=== PATIENT | female | born 1990 | race Caucasian/White ===

== ENCOUNTER 2016-03-10 12:27 | Outpatient (CLI) | payer MEDICAID | END 2016-03-10 12:28 | disposition home or self-care (01) | DX: Z34.82 Encounter for supervision of other normal pregnancy, second trimester (principal); Z36 Encounter for antenatal screening of mother ==

== ENCOUNTER 2016-03-17 12:36 | Outpatient (CLI) | payer MEDICAID | END 2016-03-17 12:37 | disposition home or self-care (01) | DX: Z36 Encounter for antenatal screening of mother (principal) ==

== ENCOUNTER 2016-04-15 16:18 | Outpatient (CLI) | payer MEDICAID | END 2016-04-15 16:19 | disposition home or self-care (01) | DX: R82.99 Other abnormal findings in urine (principal) ==

== ENCOUNTER 2016-05-02 11:18 | Outpatient (CLI) | payer MEDICAID | END 2016-05-02 11:19 | disposition home or self-care (01) | DX: Z53.9 Procedure and treatment not carried out, unspecified reason (principal) ==

== ENCOUNTER 2016-05-02 11:44 | Outpatient (CLI) | payer MEDICAID | END 2016-05-02 13:45 | disposition home or self-care (01) | DX: O99.89 Other specified diseases and conditions complicating pregnancy, childbirth and the puerperium (principal); R10.9 Unspecified abdominal pain; M54.9 Dorsalgia, unspecified; Z3A.33 33 weeks gestation of pregnancy ==

== ENCOUNTER 2016-05-28 15:08 | Outpatient (CLI) | payer MEDICAID | END 2016-05-28 15:09 | disposition home or self-care (01) | DX: Z36 Encounter for antenatal screening of mother (principal) ==

== ENCOUNTER 2016-06-25 16:09 | Inpatient (IN) | payer MEDICAID ==
[2016-06-25] MEDS ORDERED: SODIUM CHLORIDE FLUSH 0.9% 10 ML SYRINGE IVP ONE (16:19)
[2016-06-25] MEDS ORDERED: ONDANSETRON 4 MG/2 ML VIAL IVP PRN (18:29)
[2016-06-25] MEDS ORDERED: fentaNYL 100 MCG/2 ML VIAL IVP PRN (18:29)
[2016-06-25] MEDS ORDERED: SODIUM CHLORIDE FLUSH 0.9% 10 ML SYRINGE IVP PRN (18:29)
[2016-06-25] MEDS ORDERED: LACTATED RINGERS 1,000 ML IV SCH (19:00)
[2016-06-25] MEDS ORDERED: DINOPROSTONE 10 MG SUPP VG SCH (19:20)
[2016-06-25] MEDS ORDERED: ZOLPIDEM 5 MG TABLET PO PRN (19:24)
[2016-06-25] MEDS ORDERED: SODIUM CHLORIDE FLUSH 0.9% 10 ML SYRINGE IVP SCH (22:00)
[2016-06-26] MEDS ORDERED: ROPIVACAINE 0.5% PF 20 ML AMPULE EP ONE (04:00)
[2016-06-26] MEDS ORDERED: fentaNYL 100 MCG/2 ML VIAL IVP ONE (04:00)
[2016-06-26] MEDS ORDERED: ePHEDrine 50 MG/ML VIAL IVP ONE (04:00)
[2016-06-26] MEDS ORDERED: fentaNYL 100 MCG/2 ML VIAL ONE (04:21)
[2016-06-26] MEDS ORDERED: fent/BUPIV 2 MCG/0.125% 250 ML EP ONE (04:21)
[2016-06-26] MEDS ORDERED: fent/BUPIV 2 MCG/0.125% 250 ML EP PRN (05:29)
[2016-06-26] MEDS ORDERED: LACTATED RINGERS 500 ML IV ONE ×2 (05:29→11:46)
[2016-06-26] MEDS ORDERED: NALBUPHINE 20 MG/ML AMP IVP PRN (05:29)
[2016-06-26] MEDS ORDERED: ePHEDrine 50 MG/ML AMP IVP PRN (05:29)
[2016-06-26] MEDS ORDERED: diphenhydrAMINE INJ 50 MG/ML VIAL IVP PRN (05:29)
[2016-06-26] MEDS ORDERED: ONDANSETRON 4 MG/2 ML VIAL IVP PRN (05:29)
[2016-06-26] MEDS ORDERED: METOCLOPRAMIDE 10 MG/2 ML VIAL IVP PRN (05:29)
[2016-06-26] MEDS ORDERED: NALOXONE 0.4 MG/ML VIAL IVP PRN (05:29)
[2016-06-26] MEDS ORDERED: SODIUM CHLORIDE FLUSH 0.9% 10 ML SYRINGE IVP PRN (05:45)
[2016-06-26] MEDS ORDERED: SODIUM CHLORIDE FLUSH 0.9% 10 ML SYRINGE IVP SCH (06:00)
[2016-06-26] MEDS: LACTATED RINGERS 1,000 ML IV SCH ×2 (06:05→11:40)
[2016-06-26] MEDS ORDERED: OXYTOCIN/LACTATED RINGERS 250 ML IV ONE ×2 (08:59→09:27)
[2016-06-26] MEDS ORDERED: LIDOCAINE 1% 50 ML MDV ONE (09:00)
[2016-06-26] MEDS ORDERED: RHO(D) IMMUNE GLOBULIN 300 MCG SYRINGE IVP ONE (09:52)
[2016-06-26] MEDS ORDERED: HYDROCORTISONE/PRAMOXINE 10 GM PR PRN (09:52)
[2016-06-26] MEDS ORDERED: WITCH HAZEL/GLYCERIN 1 EACH MED..PAD TOP PRN (09:52)
[2016-06-26] MEDS ORDERED: SIMETHICONE CHEW 80 MG TABLET PO PRN (09:52)
[2016-06-26] MEDS ORDERED: HYDROcod/ACETAM 5/325 MG TABLET PO PRN (09:52)
[2016-06-26] MEDS: ACETAMINOPHEN 325 MG TABLET PO PRN ×2 (10:28→16:18)
[2016-06-26] MEDS ORDERED: CELECOXIB 100 MG CAPSULE PO SCH (21:00)
[2016-06-27] MEDS ORDERED: NICOTINE 14 MG PATCH TOP SCH (09:00)
== END 2016-06-26 18:45 | disposition home or self-care (01) | DRG 774 ==
PROC: 3E0P7GC Introduction of Other Therapeutic Substance into Female Reproductive, Via Natural or Artificial Opening (ICD-10-PCS; 2016-06-25)
PROC: 10E0XZZ Delivery of Products of Conception, External Approach (ICD-10-PCS; principal; 2016-06-26)
PROC: 0KQM0ZZ Repair Perineum Muscle, Open Approach (ICD-10-PCS; 2016-06-26)
DX: O48.0 Post-term pregnancy (principal); O90.89 Other complications of the puerperium, not elsewhere classified; O22.43 Hemorrhoids in pregnancy, third trimester; Z3A.41 41 weeks gestation of pregnancy; Z37.0 Single live birth; R55 Syncope and collapse; O70.1 Second degree perineal laceration during delivery; O99.334 Smoking (tobacco) complicating childbirth; F17.200 Nicotine dependence, unspecified, uncomplicated; Z87.898 Personal history of other specified conditions

== ENCOUNTER 2018-01-06 08:20 | Emergency (ER) | payer MEDICAID ==
[2018-01-06] MEDS ORDERED: fentaNYL 100 MCG/2 ML VIAL IVP STA ×2 (08:45→09:23)
[2018-01-06] MEDS ORDERED: LORazepam 2 MG/ML VIAL IVP STA (08:46)
--- NOTE | 2018-01-06 09:53 | ED Physician Documentation ---
PD HPI ABD PAIN - Stated complaint Stated Complaint: BELLY PX - Chief complaint Chief Complaint: Abd Pain - History obtained from History obtained from: Patient - History of Present Illness Timing - onset: Last night Timing - details: Still present Quality: Dull Location: Periumbilical Associated symptoms: No: Fever, Nausea, Vomiting Similar symptoms before: Diagnosis (Umbilical hernia.) - Additional information Additional information: The patient is a 27-year-old female who presents with abdominal pain associated with "my hernia." She has a history of periumbilical hernia for the last 3 years, which normally she is able to reduce. This time she has been unable to reduce the hernia since last night. She denies fever, nausea or vomiting. She has had no abdominal surgery. Review of Systems Constitutional: denies: Fever Nose: denies: Congestion Cardiac: denies: Chest pain / pressure Respiratory: reports: Cough. denies: Dyspnea GI: reports: Abdominal Pain. denies: Nausea, Vomiting : denies: Dysuria Skin: denies: Rash Musculoskeletal: denies: Back pain Neurologic: denies: Headache PD PAST MEDICAL HISTORY - Past Medical History Cardiovascular: None Respiratory: None Endocrine/Autoimmune: None Other Past Medical History: hernia - Past Surgical History Past Surgical History: No HEENT: Other - Present Medications Home Medications: Ambulatory Orders Medication Instructions Recorded Confirmed oxyCODONE/ACET 5/325 [Percocet 5 1 each PO Q4-6H #20 tablet 01/06/18 mg/325 mg] - Allergies Allergies/Adverse Reactions: Allergies Allergy/AdvReac Type Severity Reaction Status Date / Time No Known Drug Allergies Allergy Verified 01/06/18 08:30 - Social History Does the pt smoke?: Yes Smoking Status: Current every day smoker Does the pt drink ETOH?: No Does the pt have substance abuse?: No - Immunizations Immunizations are current?: Yes - POLST Patient has POLST: No PD ED PE NORMAL - Vitals Vital signs reviewed: Yes (Normal, with heart rate 86.) - General General: Alert and oriented X 3, Well developed/nourished - HEENT HEENT: Atraumatic, Moist mucous membranes - Neck Neck: No adenopathy - Cardiac Cardiac: RRR - Respiratory Respiratory: No respiratory distress, Clear bilaterally - Abdomen Abdomen: Normal bowel sounds, Soft, No organomegaly, Other (There is a small periumbilical hernia, with protruding contents of less than 1 cm diameter. There is associated tenderness with palpation.) - Back Back: No CVA TTP - Derm Derm: No rash - Neuro Neuro: Alert and oriented X 3, Normal speech Results - Vitals Vitals: Vital Signs - 24 hr 01/06/18 01/06/18 08:27 11:00 Temperature 35.8 C L Heart Rate 117 H 78 Respiratory 16 16 Rate Blood Pressure 120/76 96/49 L O2 Saturation 96 95 Oxygen O2 Source Room air - Rads (name of study) Abdominal U/S Radiology: Prelim report reviewed, EMP read contemporaneously, See rad report (Incarcerated omental hernia with narrow neck and preserved blood flow at the time of examination.) PD MEDICAL DECISION MAKING - ED course Complexity details: reviewed results, re-evaluated patient, considered differential, d/w patient, d/w family, d/w design consultant ED course: Patient's presentation is significant for incarcerated periumbilical hernia. Attempt to reduce the hernia was unsuccessful. With her in Trendelenburg position, and after receiving IV fentanyl and Ativan, I was unable to reduce the hernia with 30-40 minutes of applying steady gentle manipulation. After consulting Dr. Witt, general surgery, an ultrasound was performed. It reveals herniated omentum, without bowel contents, and with good blood supply. As such, elective, rather than emergent surgical intervention is clinically indicated. The patient is being discharged with prescription for Percocet, and referral for urgent outpatient surgical follow-up. I discussed with her and her symptomatic treatment, outpatient follow-up, as well as potentially worrisome signs or symptoms that should prompt re-evaluation in the Emergency Department. Departure - Departure Disposition: 01 Home, Self Care Clinical Impression: Umbilical hernia, incarcerated Condition: Stable Instructions: Abdominal Pain Follow-Up: [facility] [Provider Group] Prescriptions: oxyCODONE/ACET 5/325 [Percocet 5 mg/325 mg] 1 each PO Q4-6H #20 tablet Comments: Avoid heavy lifting or other things that caused increased intra-abdominal pressure. Use Percocet as prescribed if needed for pain. Follow-up with general surgery on Tuesday. Call for an appointment time. Return to the emergency department if increasing abdominal pain, fever, persistent vomiting, or otherwise worsening symptoms. Discharge Date/Time: 01/06/18 12:04
--- NOTE | 2018-01-06 11:26 | Ultrasound Report ---
Reason: umbilical hernia Procedure Date: 01/06/2018 Accession Number: [id number] / [id number] Procedure: US - Abdomen Limited CPT Code: FULL RESULT: EXAM: ABDOMEN ULTRASOUND LIMITED EXAM DATE: 01/06/2018 10:40 AM. CLINICAL HISTORY: Umbilical hernia. COMPARISON: None. TECHNIQUE: Real-time scanning was performed with static images obtained. FINDINGS: A periumbilical hernia detected by physical exam demonstrates a 0.7 cm neck and contains fatty tissue/omentum. There is no herniated bowel. Graded compression, which was painful to the patient, during the ultrasound examination is not able to reduce the hernia. Color Doppler demonstrates preserved blood flow to the incarcerated omentum. IMPRESSION: Incarcerated omental hernia with narrow neck and preserved blood flow at the time of examination. RADIA
[2018-01-06 11:45] VITALS: BP 96/49
== END 2018-01-06 12:04 | disposition home or self-care (01) ==
LOC: ED 08:20
DX: K42.0 Umbilical hernia with obstruction, without gangrene (principal); F17.200 Nicotine dependence, unspecified, uncomplicated
CPT/HCPCS: 76705; 96374; 96375; 99283; 99284; J2060

== ENCOUNTER 2019-10-24 15:19 | Outpatient (CLI) | payer MEDICAID ==
[2019-10-25 12:27] LABS: HEPATITIS C ANTIBODY NON-REACTIVE (NON-REACTIVE)
[2019-10-25 12:28] LABS: HIV AG/AB 4TH GEN NON-REACTIVE (NON-REACTIVE)
[2019-10-26 11:02] LABS: HSV 1 IGG TYPE SPECIFIC AB <0.90 index; HSV 2 IGG TYPE SPECIFIC AB <0.90 index
== END 2019-10-24 15:20 | disposition home or self-care (01) ==
LOC: LAB 15:19
PROVIDERS: ATTEND Nurse Practitioner Obstetrics & Gynecology
DX: Z11.3 Encounter for screening for infections with a predominantly sexual mode of transmission (principal)
CPT/HCPCS: 36415; 81025; 81599; 86592; 86695; 86696; 86803; 87389

== ENCOUNTER 2020-09-02 08:00 | Outpatient (CLI) | payer MEDICAID ==
[2020-09-02 20:41] LABS: BILIRUBIN,URINE NEGATIVE (NEGATIVE); GLUCOSE, URINE (UA) NEGATIVE (NEGATIVE); KETONES,URINE (UA) NEGATIVE (NEGATIVE); LEUKOCYTE ESTERASE, URINE NEGATIVE (NEGATIVE); NITRITE,URINE NEGATIVE (NEGATIVE); OCCULT BLOOD,URINE NEGATIVE (NEGATIVE); PH,URINE >=9.0 PH (5.0-7.5); PROTEIN,URINE NEGATIVE (NEGATIVE); UROBILINOGEN,URINE 0.2 (NORMAL) E.U./dL (NORMAL)
[2020-09-02 21:05] LABS: CLARITY,URINE CLEAR (CLEAR)
[2020-09-02 21:06] LABS: BACTERIA,URINE Rare /HPF (None Seen); RBC,URINE 0-5 /HPF (0-5); SQUAMOUS EPITHELIAL CELL,UR FEW Squamous (<= Few); WBC,URINE 0-3 /HPF (0-5)
[2020-09-02 23:23] LABS: CHLAMYDIA TRACHOMATIS DNA NEGATIVE (NEGATIVE); NEISSERIA GONORRHOEAE DNA NEGATIVE (NEGATIVE); TRICHOMONAS VAGINALIS DNA NEGATIVE (NEGATIVE)
== END 2020-09-02 23:59 | disposition home or self-care (01) ==
LOC: LAB.S 08:00
PROVIDERS: ATTEND Emergency Medicine
DX: R10.2 Pelvic and perineal pain (principal)
CPT/HCPCS: 81001; 87086; 87491; 87591; 87661

== ENCOUNTER 2020-09-02 14:52 | Outpatient (CLI) | payer MEDICAID ==
--- NOTE | 2020-09-02 17:54 | Ultrasound Report ---
PROCEDURE: Pelvic Complete INDICATIONS: PELVIC PAIN TECHNIQUE: Real-time transabdominal scanning was performed of the pelvic organs, with image documentation. COMPARISON: Pelvic ultrasound 08/08/2010 FINDINGS: Of note, patient refused transvaginal ultrasound due to pain. Uterus: Uterus is mildly enlarged at 10.8 x 5.4 x 6.9 cm. Endometrium measures 6 mm in combined thi ckness. The myometrium appears heterogeneous without a focal mass. Ovaries: The right ovary measures 4 x 3.5 x 4.1 cm (30 mL). The left ovary measures 4.4 x 3.9 x 4.9 cm (44 mL). A simple right ovarian cyst measures 2.0 x 1.8 x 2.0 cm. A simple left ovarian cyst measu res 2.9 x 2.7 x 3.1 cm. Other: Trace free fluid is seen in the pelvic cul-de-sac. IMPRESSION: 1. The uterus is mildly enlarged with heterogeneous myometrium, which is nonspecific but can be seen in the setting of adenomyosis. 2. Ovaries are enlarged by simple cysts bilaterally. The cysts measure 3.1 cm on the left and 2.0 cm on the right. No sonographic signs of ovarian torsion. Preliminary findings were conveyed to the ordering provider by the food bagging machine operator immediately following the exam. Reviewed by: Dimitry Lechuga MD on 09/02/2020 4:53 PM JAN Approved by: Dimitry Lechuga MD on 09/02/2020 4:53 PM JAN Station ID: [id number]
== END 2020-09-02 14:53 | disposition home or self-care (01) ==
LOC: DI 14:52
PROVIDERS: ATTEND Emergency Medicine
DX: N85.2 Hypertrophy of uterus (principal); N83.292 Other ovarian cyst, left side; N83.291 Other ovarian cyst, right side
CPT/HCPCS: 81001; 87086; 87491; 87591; 87661

== ENCOUNTER 2021-01-14 08:00 | Outpatient (CLI) | payer MEDICAID ==
[2021-01-15 22:40] LABS: BACTERIAL VAGINOSIS DNA POSITIVE (NEGATIVE); CANDIDA GLABRATA DNA NEGATIVE (NEGATIVE); CANDIDA GROUP DNA POSITIVE (NEGATIVE); CANDIDA KRUSEI DNA NEGATIVE (NEGATIVE); TRICHOMONAS VAGINALIS DNA NEGATIVE (NEGATIVE)
== END 2021-01-14 23:59 | disposition home or self-care (01) ==
LOC: LAB.WC 08:00
PROVIDERS: ATTEND Obstetrics & Gynecology
DX: N76.0 Acute vaginitis (principal)
CPT/HCPCS: 87661; 87801

== ENCOUNTER 2021-02-03 08:27 | Outpatient (CLI) | payer MEDICAID ==
--- NOTE | 2021-02-04 14:05 | Ultrasound Report ---
LIMITED ULTRASOUND OF RIGHT BREAST AND AXILLA: 02/03/2021 CLINICAL: Nipple discharge, right breast, not bloody. No prior exams were available for comparison. Color flow and real-time ultrasound of the right breast retroareolar and axilla regions were performe d on the areas of interest. Dior scale images of the real-time examination were reviewed. There is a 1.8 cm x 0.3 cm x 1.4 cm oval mass with an indistinct and circumscribed margin in the righ t breast at 1 o'clock anterior depth 2 cm from the nipple. This oval mass is of mixed echogenicity w ith fatty hilum. Color flow imaging demonstrates that there is no vascularity present. There also is a 1.6 cm x 0.3 cm x 1.4 cm oval mass with an indistinct and circumscribed margin in the right breast at 6 o'clock in the retroareolar region 2 cm from the nipple. This oval mass is of mix ed echogenicity with fatty hilum. Color flow imaging demonstrates that there is no vascularity prese nt. Additionally, there is a 1.2 cm x 0.2 cm x 0.9 cm oval mass with an indistinct and circumscribed paulie in in the right breast at 7 o'clock anterior depth 2 cm from the nipple. This oval mass is of mixed echogenicity. Color flow imaging demonstrates that there is no vascularity present. In addition, there is a benign 1.2 cm x 0.3 cm x 1.2 cm oval cyst in the right breast at 12 o'clock a nterior depth. This oval cyst is anechoic with a well-defined boundary and posterior acoustic enhanc ement. Color flow imaging demonstrates that there is no vascularity present. IMPRESSION: PROBABLY BENIGN The 1.8 cm x 0.3 cm x 1.4 cm oval mass in the right breast at 1 o'clock anterior depth resembles a ly mph node and is probably benign. A follow-up ultrasound in 6 months is recommended. The 1.6 cm x 0.3 cm x 1.4 cm oval mass in the right breast at 6 o'clock in the retroareolar region re sembles a lymph node and is probably benign. A follow-up ultrasound in 6 months is recommended. The 1.2 cm x 0.2 cm x 0.9 cm oval mass in the right breast at 7 o'clock anterior depth resembles a ly mph node and is probably benign. A follow-up ultrasound in 6 months is recommended. The 1.2 cm x 0.3 cm x 1.2 cm oval cyst in the right breast at 12 o'clock anterior depth is consistent with a simple cyst and is benign. There is no abnormality seen in the right breast to correspond with the non-bloody discharge from the nipple in the sub-areolar depth, however, clinical followup is recommended. A follow-up ultrasound in 6 months is recommended to demonstrate stability. This exam was interpreted at Station ID: [id number]. Electronically Signed By: Regan Herrmann M.D. ddp/:02/03/2021 10:00:48 Ultrasound BI-RADS: 3 Probably benign BI-RADS CATEGORY: (3) - 3 Ultrasound [id number] 6 month follow-up LATERALITY: (B)
== END 2021-02-03 08:28 | disposition home or self-care (01) ==
LOC: DI 08:27
PROVIDERS: ATTEND Obstetrics & Gynecology
DX: O92.6 Galactorrhea (principal); N63.12 Unspecified lump in the right breast, upper inner quadrant; N63.15 Unspecified lump in the right breast, overlapping quadrants; N63.13 Unspecified lump in the right breast, lower outer quadrant

== ENCOUNTER 2021-02-03 10:01 | Outpatient (CLI) | payer MEDICAID | END 2021-02-03 10:02 | disposition home or self-care (01) | LOC: LAB 10:01 | PROVIDERS: ATTEND Obstetrics & Gynecology | DX: N64.3 Galactorrhea not associated with childbirth (principal) | CPT/HCPCS: 36415; 84146 ==

== ENCOUNTER 2021-02-25 08:00 | Outpatient (CLI) | payer MEDICAID ==
[2021-02-25 21:06] LABS: BACTERIAL VAGINOSIS DNA NEGATIVE (NEGATIVE); CANDIDA GLABRATA DNA NEGATIVE (NEGATIVE); CANDIDA GROUP DNA POSITIVE (NEGATIVE); CANDIDA KRUSEI DNA NEGATIVE (NEGATIVE); TRICHOMONAS VAGINALIS DNA NEGATIVE (NEGATIVE)
== END 2021-02-25 23:59 ==
LOC: LAB 08:00
PROVIDERS: ATTEND Nurse Practitioner Obstetrics & Gynecology
DX: N76.0 Acute vaginitis (principal)
CPT/HCPCS: 87661; 87801

== ENCOUNTER 2021-09-07 08:44 | Outpatient (CLI) | payer MEDICAID ==
--- NOTE | 2021-09-09 16:14 | Ultrasound Report ---
LIMITED ULTRASOUND OF RIGHT BREAST: 09/07/2021 CLINICAL: Patient returns for a 6 month follow up of the right breast. Comparison is made to exam dated: 02/03/2021 ultrasound - [facility]. Color flow and real-time ultrasound of the right breast 1 o'clock and 6-7 o'clock regions were perfor med. Dior scale images of the real-time examination were reviewed. There is a benign 1.2 cm x 1.2 cm x 0.3 cm oval lymph node with an indistinct and circumscribed lauren n in the right breast at 1 o'clock anterior depth 2 cm from the nipple. This oval lymph node display s fatty hilum. This abnormality is decreased in size. Color flow imaging demonstrates that there is vascularity present. IMPRESSION: BENIGN There is no sonographic evidence of malignancy. The small lymph node in the right breast is decreased in size and is benign. Recommend mammogram screening usually to commence at age 40. This exam was interpreted at Station ID: [id number]. Electronically Signed By: Jorge Velarde M.D. slc/:09/09/2021 14:20:53 Ultrasound BI-RADS: 2 Benign BI-RADS CATEGORY: (2) - 2 Unspecified - other recall n/a LATERALITY: (B)
== END 2021-09-07 08:45 | disposition home or self-care (01) ==
LOC: DI 08:44
PROVIDERS: ATTEND Surgery
DX: N63.12 Unspecified lump in the right breast, upper inner quadrant (principal)

== ENCOUNTER 2021-11-09 13:09 | Outpatient (CLI) | payer MEDICAID ==
--- NOTE | 2021-11-09 19:13 | Ultrasound Report ---
PROCEDURE: OB First Trimester INDICATIONS: positive test OUTSIDE/PRIOR DATING DATA: Last menstrual period (LMP): 09/17/2021. LMP-based estimated date of delivery (CHRIS): 06/24/2022. First dating scan (date and location): 11/09/2021. Estimated date of delivery (CHRSI) from first dating scan: 06/24/2022. TECHNIQUE: Real-time scanning was performed of the fetus and maternal pelvic organs, with image documentation. COMPARISON: None FINDINGS: There is a dichorionic diamniotic twin gestation present. Cervix measures 3.1 cm in length and is macy sed. [place]-rump length of fetus a measures 1.48 cm corresponding with a 7 week 6 day gestation. hear t rate 145 bpm [place]-rump length of fetus B measures 1.28 cm corresponding with a 7 week 4 day gestation. hear t rate 145 bpm. There is a small perigestational bleed near the fundus measuring 1.7 x 0.7 cm Both maternal ovaries are unremarkable. IMPRESSION: Twin gestation with positive cardiac motion as above Small kieran-gestational bleed measures 1.7 x 0.7 cm Reviewed by: Ike Prieto MD on 11/09/2021 6:12 PM AKDT Approved by: Ike Prieto MD on 11/09/2021 6:12 PM AKDT Station ID: [id number]
--- NOTE | 2021-11-09 19:17 | Ultrasound Report ---
PROCEDURE: OB First Trimester Addl Fetus INDICATIONS: positive test OUTSIDE/PRIOR DATING DATA: Last menstrual period (LMP): 09/17/2021. LMP-based estimated date of delivery (CHRIS): 06/24/2022. First dating scan (date and location): 11/09/2021. Estimated date of delivery (CHRIS) from first dating scan: 06/24/2022. TECHNIQUE: Real-time scanning was performed of the fetus and maternal pelvic organs, with image documentation. COMPARISON: None FINDINGS: There is a dichorionic diamniotic twin gestation present. Cervix measures 3.1 cm in length and is macy sed. [place]-rump length of fetus a measures 1.48 cm corresponding with a 7 week 6 day gestation. hear t rate 145 bpm [place]-rump length of fetus B measures 1.28 cm corresponding with a 7 week 4 day gestation. hear t rate 145 bpm. There is a small perigestational bleed near the fundus measuring 1.7 x 0.7 cm Both maternal ovaries are unremarkable. IMPRESSION: Twin gestation with positive cardiac motion as above Small kieran-gestational bleed measures 1.7 x 0.7 cm Reviewed by: Ike Prieto MD on 11/09/2021 6:15 PM JAN Approved by: Ike Prieto MD on 11/09/2021 6:15 PM JAN Station ID: [id number]
== END 2021-11-09 13:10 | disposition home or self-care (01) ==
LOC: DI 13:09
PROVIDERS: ATTEND Nurse Practitioner
DX: O30.041 Twin pregnancy, dichorionic/diamniotic, first trimester (principal)

== ENCOUNTER 2021-12-07 08:00 | Outpatient (CLI) | payer MEDICAID ==
[2021-12-07 20:56] LABS: CHLAMYDIA TRACHOMATIS DNA NEGATIVE (NEGATIVE); NEISSERIA GONORRHOEAE DNA NEGATIVE (NEGATIVE); TRICHOMONAS VAGINALIS DNA NEGATIVE (NEGATIVE)
== END 2021-12-07 23:59 | disposition home or self-care (01) ==
LOC: LAB 08:00
PROVIDERS: ATTEND Obstetrics & Gynecology
DX: Z11.3 Encounter for screening for infections with a predominantly sexual mode of transmission (principal)
CPT/HCPCS: 87491; 87591; 87661

== ENCOUNTER 2021-12-07 12:13 | Outpatient (CLI) | payer MEDICAID ==
[2021-12-07 13:19] LABS: ALBUMIN 3.9 g/dL (3.2-5.5); ALBUMIN/GLOBULIN RATIO 1.1 (1.0-2.2); BILIRUBIN,TOTAL 0.3 mg/dL (0.2-1.0); CALCIUM 9.6 mg/dL (8.5-10.3); CREATININE 0.5 mg/dL (0.4-1.0); POTASSIUM 3.7 mmol/L (3.5-5.0); TOTAL PROTEIN 7.4 g/dL (6.7-8.2)
[2021-12-07 13:21] LABS: BASOPHILS % (AUTO) 0.3 %; EOSINOPHILS # (AUTO) 0.1 10^3/uL (0.0-0.7); EOSINOPHILS % (AUTO) 1.6 %; HCT - HEMATOCRIT 37.6 % (37.0-47.0); HGB - HEMOGLOBIN 13.2 g/dL (12.0-16.0); LYMPHOCYTES # (AUTO) 1.9 10^3/uL (1.5-3.5); LYMPHOCYTES % (AUTO) 20.9 %; MEAN CORPUSCULAR HEMOGLOBIN 33.5 pg (27.0-31.0); MEAN CORPUSCULAR HGB CONC 35.1 g/dL (32.0-36.0); MEAN CORPUSCULAR VOLUME 95.4 fL (81.0-99.0); MEAN PLATELET VOLUME 10.6 fL (7.9-10.8); MONOCYTES # (AUTO) 0.5 10^3/uL (0.0-1.0); MONOCYTES % (AUTO) 5.5 %; NEUTROPHILS # (AUTO) 6.4 10^3/uL (1.5-6.6); NEUTROPHILS % (AUTO) 71.3 %; PLT - PLATELET COUNT 282 10^3/uL (130-450); RED BLOOD COUNT 3.94 10^6/uL (4.20-5.40); RED CELL DISTRIBUTION WIDTH 11.8 % (12.0-15.0)
[2021-12-08 05:09] LABS: HBsAG SCREEN Negative (Negative); HCV AB <0.1 s/co ratio (0.0-0.9); VITAMIN D 25-HYDROXY 28.5 ng/mL (30.0-100.0)
[2021-12-08 08:09] LABS: HIV SCREEN 4TH GENERATION Non Reactive (Non Reactive); RPR Non Reactive (Non Reactive); VARICELLA-ZOSTER AB IGG 888 index (Immune >165)
== END 2021-12-07 12:14 | disposition home or self-care (01) ==
LOC: LAB 12:13
PROVIDERS: ATTEND Nurse Practitioner
DX: O30.049 Twin pregnancy, dichorionic/diamniotic, unspecified trimester (principal); Z36.89 Encounter for other specified antenatal screening
CPT/HCPCS: 36415; 80053; 82306; 82607; 82746; 83540; 85025; 86592; 86762; 86787; 86803; 86850; 86900; 86901; 87340; 87389

== ENCOUNTER 2022-02-23 23:24 | Emergency (ER) | payer MEDICAID ==
--- NOTE | 2022-02-24 02:09 | ED Physician Documentation ---
PD HPI HEADACHE - Stated complaint Stated Complaint: H,V,N - Chief complaint Chief Complaint: Heent - History obtained from History obtained from: Patient - History of Present Illness Timing - onset: Enter time (20:00) Timing - onset during: Rest Timing - details: Gradual onset, Waxing and waning Worst headache ever?: No: Worst headache ever? Location: Front, Right, Left Quality: Aching Associated symptoms: Nausea, Vomiting. No: Fever, Stiff neck, Weakness, Numbness, Vision changes Improved by: Dark room Worsened by: Light Contributing factors: No: Anticoagulated, Hypertension Similar symptoms before: Has not had sx before Recently seen: Clinic - Additional information Additional information: Patient is 22 weeks with twins. She had been referred to an project superintendent group in [facility] for this (due to twin gestation; she has had two previous, uncomplicated deliveries in [facility]). She met with the project superintendent in [place] yesterday and there was a discussion regarding signs/symptoms of preeclampsia that she should watch for; per patient's description of the circumstances, it sounds like these were simply precautions rather than prompted by any signs or symptoms at the time of the evaluation. Tonight at approximately 8 PM, patient developed bifrontal headache with nausea, vomiting; gradual onset while at rest but persistent through tylenol. Patient says she has had similar headaches before but typically they have rapidly responded to tylenol. She does not have any headache-related diagnoses such as migraines. Patient says she had her most recent US a few days ago and findings were reassuring and correlative with her twin gestation/dates. Review of Systems Constitutional: denies: Fever Eyes: reports: Photophobia. denies: Loss of vision, Decreased vision Respiratory: denies: Dyspnea, Cough GI: reports: Nausea, Vomiting. denies: Abdominal Pain Musculoskeletal: reports: Extremity swelling (intermittent mild BLE edema, not new nor worse today) Neurologic: reports: Headache PD PAST MEDICAL HISTORY - Past Medical History Past Medical History: Yes Cardiovascular: None Respiratory: None Neuro: Headaches Endocrine/Autoimmune: None GI: None [employer]: None : None HEENT: None Psych: None Musculoskeletal: None Derm: None - Past Surgical History Past Surgical History: Yes HEENT: Other - Present Medications Home Medications: Ambulatory Orders Medication Instructions Recorded Confirmed Metoclopramide [Reglan] 10 mg PO Q6H PRN #14 tablet 02/24/22 - Allergies Allergies/Adverse Reactions: Allergies Allergy/AdvReac Type Severity Reaction Status Date / Time No Known Drug Allergies Allergy Verified 01/06/18 08:30 - Social History Does the pt smoke?: Yes Smoking Status: Current every day smoker Does the pt drink ETOH?: No Does the pt have substance abuse?: No - Immunizations Immunizations are current?: Yes - POLST Patient has POLST: No PD ED PE NORMAL - Vitals Vital signs reviewed: Yes - General General: Alert and oriented X 3, No acute distress, Well developed/nourished, Other (lights are off in room for patient comfort (due to photophobia); she is in NAD (initially asleep when I enter room, easily wakens to voice)) - Cardiac Cardiac: RRR, No murmur - Respiratory Respiratory: No respiratory distress, Clear bilaterally - Abdomen Abdomen: Soft, Non tender, Other (gravid appearance appropriate to 22 week twin gestation) - Extremities Extremities: No edema - Neuro Neuro: Alert and oriented X 3 Eye Opening: Spontaneous Motor: Obeys Commands Verbal: Oriented GCS Score: 15 Results - Vitals Vitals: Vital Signs - 24 hr 02/23/22 02/24/22 02/24/22 23:26 00:28 01:10 Temperature 37.0 C Heart Rate 83 Respiratory 16 16 15 Rate Blood Pressure 121/71 O2 Saturation 99 02/24/22 02/24/22 02/24/22 02:15 02:35 03:05 Temperature Heart Rate 81 84 Respiratory 16 15 16 Rate Blood Pressure 88/71 L 92/56 L O2 Saturation 100 95 02/24/22 02/24/22 02/24/22 03:06 03:30 03:51 Temperature Heart Rate 101 H 88 Respiratory 15 16 16 Rate Blood Pressure 134/87 H 101/56 L O2 Saturation 100 99 Oxygen O2 Source Room air PD Medical Decision Making - ED course Complexity details: considered differential, d/w patient ED course: patient's chief complaint is headache associated with nausea, vomiting. her chief concern is that headache was one of the warning signs her project superintendent recently discussed with patient regarding preeclampsia. Fortunately, patient's blood pressure are normal (initial and final reading during ED stay), with two borderline low pressures (systolic only, normal diastolic readings) in between. Note that there is one blood pressure recorded of 130's / 80s that was entered in error by ED RN (I discussed this with the ED RN and she confirms that this was a different patient's blood pressure and not this (Reshma Cheney') blood pressure. Thus, patient does not have high blood pressure readings, and can presume the readings tonight are not significantly above her baseline, given that tonight's readings are alehdw-ky-mcc-normal. I consulted Dr. Heredia; she agrees elevated BP readings would be expected with preeclampsia, but that can consider UA, LFTs. I discussed the option for testing with patient, but she is comfortable with the reassurance I am able to provide that her BP readings would be inconsistent with preeclampsia. Thus, tests not undertaken at this time. She will consider purchasing a BP cuff for home monitoring, but I also encouraged her to contact her project superintendent's office in the morning to ascertain whether they have further concerns or recommendations. Regarding her symptoms, patient repeatedly declines medications; she voices that she was chiefly concerned about possible preeclampsia rather than symptom treatment or specific diagnosis to rule in/out other causes of headache. On reevaluation prior to d/c, I did relay that the on-call project superintendent mentioned benadryl and reglan as safe treatment options for these symptoms, and patient says she would like a dose of the reglan (given PO prior to d/c) and I provided an rx for reglan (electronically submitted to her pharmacy of choice). Patient is afebrile and without meningismus, and she says this is more persistent headache than usual for her but not worst headache; thus, meningitis, SAH are of particularly low suspicion at this time. the photophobia and n/v suggest migraine headache , but her understandable reluctance to take medications during this unless necessary, and considering she does not describe recurrent pattern of similarly persistent headaches (brief headaches relieved by tylenol would be atypical for migraine headaches), this diagnosis and consideration of migraine-specific treatment can be deferred at this time Departure - Departure Disposition: 01 Home, Self Care Clinical Impression: Headache Qualifiers: Headache type: unspecified Headache chronicity pattern: acute headache Intractability: not intractable Qualified Code(s): R51.9 - Headache, unspecified Condition: Good Instructions: ED Cephalgia Unspecified Follow-Up: Grecia Deleon ARNP [Primary Care Provider] - Prescriptions: Metoclopramide [Reglan] 10 mg PO Q6H PRN #14 tablet PRN Reason: Nausea / Vomiting Comments: Your blood pressures were running normal to low-normal in the ER tonight. As we discussed, this alone makes preeclampsia very unlikely. One of the hallmarks of preeclampsia is high blood pressure (or a blood pressure that is significantly higher than once baseline blood pressure). Because of this, no tests were performed in the emergency department tonight. There are tests (typically blood tests and urinalysis) that can be performed if preeclampsia is or becomes a concern. The cause of your headache is not apparent at this time, but based on your description of the symptoms and the lack of any significant findings on the exam, a serious or specific cause is unlikely. Certainly, if your symptoms worsen, or if you develop new and concerning signs or symptoms (such as fever, worsening headache, intractable vomiting, visual changes, abdominal pain, swelling in your legs), please return to the emergency department for reevaluation. A prescription for an antinausea medication (metoclopramide) has been electronically submitted to [facility] in [place]. I recommend that you contact your [employer] VAULT ATTENDANT when their office opens later this morning to discuss the reason for your ER visit as well as what transpired and see if they have further recommendations regarding follow-up and/for testing. Discharge Date/Time: 02/24/22 04:00
[2022-02-24] MEDS ORDERED: METOCLOPRAMIDE 10 MG TABLET PO STA (03:44)
[2022-02-24 03:52] VITALS: BP 101/56
== END 2022-02-24 04:00 | disposition home or self-care (01) ==
LOC: ED 23:24
DX: O99.891 Other specified diseases and conditions complicating pregnancy (principal); R51.9 Headache, unspecified; O21.9 Vomiting of pregnancy, unspecified; O30.002 Twin pregnancy, unspecified number of placenta and unspecified number of amniotic sacs, second trimester; O99.332 Smoking (tobacco) complicating pregnancy, second trimester; F17.210 Nicotine dependence, cigarettes, uncomplicated; Z3A.22 22 weeks gestation of pregnancy
CPT/HCPCS: 99282; 99284; A9270

== ENCOUNTER 2023-05-25 06:26 | Day surgery (SDC) | payer MEDICAID ==
[2023-05-25] MEDS: LACTATED RINGERS 1,000 ML IV ONE ×2 (06:31→08:50)
[2023-05-25] MEDS ORDERED: ceFAZolin 2 GM VIAL ONE ×2 (06:48→06:50)
[2023-05-25] MEDS: ACETAMINOPHEN 500 MG TABLET PO ONE (06:54)
[2023-05-25] MEDS ORDERED: LIDOCAINE 1%-EPI 1:100000 20 ML MDV ONE (07:27)
--- NOTE | 2023-05-25 07:27 | ANESTHESIA ---
Pre-Anesthesia VS, & Labs - Diagnosis screening/hemorrhoids - Procedure COLONOSCOPY/EUA Vital Signs: Temp Pulse Resp BP Pulse Ox O2 Flow Rate 36.4 C L 95 16 123/67 100 05/25/23 06:40 05/25/23 06:40 05/25/23 06:40 05/25/23 06:40 05/25/23 06:40 Height: 5 ft 11 in Weight (kg): 79 kg Body Mass Index: 24.3 BMI Classification: Normal - NPO Last Fluid Intake: 0300 Last Food Intake: >8HR - Is Patient ?: No (PT HAD A TUBAL LIGATION WITH LAST C SECTION) Home Medications and Allergies Home Medications: Ambulatory Orders No Known Home Medications 05/17/23 No Known Home Medications 05/17/23 Allergies/Adverse Reactions: Allergies Allergy/AdvReac Type Severity Reaction Status Date / Time No Known Drug Allergies Allergy Verified 05/25/23 06:56 Anes History & Medical History - Anesthetic History Anesthesia Complications: reports: No previous complications Family history of Anesthesia Complications: Denies - Medical History Cardiovascular: reports: None Pulmonary: reports: None Gastrointestinal: reports: Hemorrhoids Urinary: reports: Chronic bladder infection Neuro: reports: Headaches Musculoskeletal: reports: None Endocrine/Autoimmune: reports: None Blood Disorders: reports: None Skin: reports: Eczema Smoking Status: Former smoker Psychosocial: reports: No issues indicated - Surgical History Eyes Ears Nose Throat (EENT): reports: Other Gynecologic: reports: section Results - EKG Results EKG Comparison: Reviewed EKG Exam General: Alert, Mild distress Dental: WNL Mouth Openin Fingerbreadth Neck Mobility: Normal Mallampati classification: II Respiratory: Lungs clear Cardiovascular: Regular rate Plan Anesthesia Type: Total IV Consent for Procedure(s) Verified and Reviewed: Yes Code Status: Attempt Resuscitation ASA classification: 2-Mild systemic disease Is this case an emergency?: No
[2023-05-25] MEDS ORDERED: LIDOCAINE OINTMENT 5% 35.44 GM TUBE ONE (07:28)
[2023-05-25] MEDS ORDERED: ONDANSETRON 4 MG/2 ML VIAL IVP PRN (07:28)
[2023-05-25] MEDS ORDERED: ATROPINE ABBOJECT 1 MG/10 ML SYRINGE IVP PRN (07:28)
[2023-05-25] MEDS ORDERED: NALOXONE 0.4 MG/ML VIAL IVP PRN (07:28)
[2023-05-25] MEDS ORDERED: ePHEDrine 50 MG/ML VIAL IVP PRN (07:28)
[2023-05-25] MEDS ORDERED: METOCLOPRAMIDE 10 MG/2 ML VIAL IVP PRN (07:28)
[2023-05-25] MEDS ORDERED: BUPIVACAINE 0.5% PF 10 ML VIAL ONE (07:28)
[2023-05-25] MEDS ORDERED: MORPHINE 2 MG/ML CARPUJECT IVP PRN (07:28)
[2023-05-25] MEDS ORDERED: MIDAZOLAM 2 MG/2 ML VIAL ONE (07:32)
[2023-05-25] MEDS ORDERED: DEXMEDETOMIDINE 200 MCG/2 ML VIAL ONE (07:50)
[2023-05-25] MEDS ORDERED: LIDOCAINE-PF 2% 10 ML AMP SUBQ ONE (07:50)
[2023-05-25] MEDS ORDERED: PROPOFOL 500 MG/50 ML 500 MG/50 ML VIAL ONE (07:50)
[2023-05-25] MEDS ORDERED: LACTATED RINGERS 1,000 ML IV SCH (08:00)
[2023-05-25] MEDS ORDERED: GLYCOPYRROLATE 1 MG/5 ML VIAL ONE (08:03)
[2023-05-25] MEDS ORDERED: fentaNYL 100 MCG/2 ML VIAL ONE ×2 (08:11→09:08)
[2023-05-25] MEDS ORDERED: DEXAMETHASONE 4 MG/ML VIAL ONE (08:16)
[2023-05-25] MEDS ORDERED: ONDANSETRON 4 MG/2 ML VIAL ONE (08:16)
[2023-05-25] MEDS: SIMETHICONE *(INFANT SUSP)* 40 MG/0.6 ML BOTTLE PO ONE (08:20)
[2023-05-25] MEDS: LIDOCAINE OINTMENT 5% 35.44 GM TUBE TOP ONE (08:35)
[2023-05-25] MEDS: fentaNYL 100 MCG/2 ML VIAL IVP PRN (09:13)
[2023-05-25] MEDS ORDERED: HYDROmorphone 1 MG/ML CARPUJECT ONE (09:19)
[2023-05-25] MEDS: HYDROmorphone 0.5 MG/0.5 ML SYRINGE IVP PRN (09:20)
[2023-05-25 09:46] VITALS: O2SAT 100
[2023-05-25 10:17] VITALS: BP 115/84
== END 2023-05-25 06:27 | disposition home or self-care (01) ==
LOC: SDS 06:26
PROVIDERS: ATTEND Surgery
PROC: 0DBM8ZX Excision of Descending Colon, Via Natural or Artificial Opening Endoscopic, Diagnostic (ICD-10-PCS; principal; 2023-05-25 07:30)
PROC: 0DBN8ZX Excision of Sigmoid Colon, Via Natural or Artificial Opening Endoscopic, Diagnostic (ICD-10-PCS; 2023-05-25 07:30)
DX: Z12.11 Encounter for screening for malignant neoplasm of colon (principal); K62.3 Rectal prolapse; K64.9 Unspecified hemorrhoids; D12.4 Benign neoplasm of descending colon; D12.5 Benign neoplasm of sigmoid colon; D12.7 Benign neoplasm of rectosigmoid junction; D12.8 Benign neoplasm of rectum; Z80.0 Family history of malignant neoplasm of digestive organs; Z87.891 Personal history of nicotine dependence
CPT/HCPCS: 45380; 45385; A9270; J1170; J7120